=== PATIENT | female | born 1995 | race African-American/Black ===

== ENCOUNTER 2016-05-02 07:59 | Emergency (ER) | payer SELFPAY ==
[~2016-05-02] VITALS: Ht 162.6 cm; Wt 79.4 kg
--- NOTE | 2016-05-02 08:11 | PHYS DOC ---
Adult General Chief Complaint Chief Complaint: VAGINAL BLEEDING [facility] HPI Patient is a 20 year old female who presents with vaginal bleeding in . She is a 1 para 0 currently stating her last menstrual cycle around 03/08/2016. She states she used the bathroom today and noted some blood in the toilet. Patient denies any abdominal pain, denies any back pain. Denies any nausea vomiting. Denies any concerns for STDs. She has not had any OB care. Review of Systems Review of Systems Constitutional: Denies fever or chills [] Eyes: Denies change in visual acuity, redness, or eye pain [] HENT: Denies nasal congestion or sore throat [] Respiratory: Denies cough or shortness of breath [] Cardiovascular: No additional information not addressed in HPI [] GI: vaginal bleeding in : Denies dysuria or hematuria [] Musculoskeletal: Denies back pain or joint pain [] Integument: Denies rash or skin lesions [] Neurologic: Denies headache, focal weakness or sensory changes [] Endocrine: Denies polyuria or polydipsia [] Allergies Allergies Allergies Coded Allergies Type Severity Reaction Last Updated Verified No Known Drug Allergies 05/02/16 No Physical Exam Physical Exam Constitutional: Well developed, well nourished, no acute distress, non-toxic appearance. [] HENT: Normocephalic, atraumatic, bilateral external ears normal, oropharynx moist, no oral exudates, nose normal. [] Eyes: PERRLA, EOMI, conjunctiva normal, no discharge. [] Neck: Normal range of motion, no tenderness, supple, no stridor. [] Cardiovascular:Heart rate regular rhythm, no murmur [] Lungs & Thorax: Bilateral breath sounds clear to auscultation [] Abdomen: Bowel sounds normal, soft, no tenderness, no masses, no pulsatile masses. [] Pelvic exam External pelvic appears normal, cervix is closed, no CMT, no bleeding in the vaginal vault. Small amount of clear white discharge in the vaginal vault. No adnexal tenderness. Skin: Warm, dry, no erythema, no rash. [] Back: No tenderness, no CVA tenderness. [] Extremities: No tenderness, no cyanosis, no clubbing, ROM intact, no edema. [] Neurologic: Alert and oriented X 3, normal motor function, normal sensory function, no focal deficits noted. [] Psychologic: Affect normal, judgement normal, mood normal. [] Current Patient Data Vital Signs Vital Signs Date Time Temp Pulse Resp B/P Pulse Ox O2 Delivery O2 Flow Rate FiO2 05/02/16 09:15 73 16 135/74 99 Room Air 05/02/16 08:00 99.2 99.2 Lab Values Laboratory Tests Test 05/02/16 08:20 05/02/16 09:30 White Blood Count 6.4x10^3/uL (4.0-11.0) Red Blood Count 4.67x10^6/uL (3.50-5.40) Hemoglobin 13.5g/dL (12.0-15.5) Hematocrit 41.3% (36.0-47.0) Mean Corpuscular Volume 88fL (79-100) Mean Corpuscular Hemoglobin 29pg (25-35) Mean Corpuscular Hemoglobin Concent 33g/dL (31-37) Red Cell Distribution Width 13.8% (11.5-14.5) Platelet Count 209x10^3/uL (140-400) Neutrophils (%) (Auto) 52% (31-73) Lymphocytes (%) (Auto) 36% (24-48) Monocytes (%) (Auto) 10% (0-9) H Eosinophils (%) (Auto) 1% (0-3) Basophils (%) (Auto) 1% (0-3) Neutrophils # (Auto) 3.3x10^3uL (1.8-7.7) Lymphocytes # (Auto) 2.3x10^3/uL (1.0-4.8) Monocytes # (Auto) 0.6x10^3/uL (0.0-1.1) Eosinophils # (Auto) 0.1x10^3/uL (0.0-0.7) Basophils # (Auto) 0.0x10^3/uL (0.0-0.2) Maternal Serum HCG Beta Subunit 84009sWB/mL (0-6) H Urine Collection Type Void Urine Color Yellow Urine Clarity Clear Urine pH 7.0 Urine Specific [place] 1.020 Urine Protein Negativemg/dL (NEG-TRACE) Urine Glucose (UA) Negativemg/dL (NEG) Urine Ketones (Stick) Negativemg/dL (NEG) Urine Blood Negative (NEG) Urine Nitrite Positive (NEG) Urine Bilirubin Negative (NEG) Urine Urobilinogen Dipstick 1.0mg/dL (0.2 mg/dL) Urine Leukocyte Esterase Moderate (NEG) Urine RBC 1-2/HPF (0-2) Urine WBC >40/HPF (0-4) Urine Squamous Epithelial Cells Many/LPF Urine Bacteria Many/HPF (0-FEW) Urine Mucus Marked/LPF Urine Test Positive (NEG) Laboratory Tests 05/02/16 08:20 Microbiology 05/02/16 Wet Prep - Final, Complete Microbiology 05/02/16 Wet Prep - Final, Complete EKG EKG [] Radiology/Procedures Radiology/Procedures []PROCEDURE: OB <14 WKS W/TV Procedure: OB Sono Less Than 14Wks 0 Days Clinical information: Vaginal bleeding, patient is Date of Service: 05/02/16. Comparison: None available Technique: Multiple transabdominal and endovaginal longitudinal and transverse 2D real time ultrasound images through the pelvis were acquired. Findings: The uterus measures 8.2 x 6.2 x 5.7 cm. Single into uterine gestational sac containing a live pole is noted. CRL measures 0.96 cm corresponding to a maturity of 17 weeks 0 days. Mean sac diameter measures 2.46 cm corresponding to a maturity of 17 weeks 4 days. The composite maturity is 7 weeks 2 days with a EDC of 12/17/26. Maturity by LMP measures 7 weeks 6 days with a EDC of 12/13/16. Doppler interrogation reveals a cardiac activity at the rate of 141beats per minute. The uterus is otherwise unremarkable. Cervix measures4.3 cm. The ovaries are unremarkable. Right ovary measures 2.7 x 2.3 x 1.5 cm left ovary measures 2.7 x 2.6 x 2.2 cm.. Symmetric vascularity to both ovaries. There is a 1.5 cm follicular cyst in the left ovary No adnexal mass is seen. No free fluid is seen. Impression: 1. Single intrauterine gestational sac containing a pole of maturity 17 weeks and 2 days with a heart rate of 1 41 bpm DICTATED and SIGNED BY: JOSSY GONZALEZ MD DATE: 05/02/16 0929 CC: VAIBHAV AL APRN; NO PCP ~ Course & Med Decision Making Course & Med Decision Making Pertinent Labs and Imaging studies reviewed. (See chart for details) This is a 20 year old female patient presenting today for vaginal bleeding in that begun this morning. She had no vaginal bleeding on pelvic exam. Positive urine hCG, beta-hCG 90,102. A positive blood group. CBC with no acute findings. Wet prep positive for BV. Patient to be discharged and Flagyl. Urine positive for UTI. She'll be discharged with cephalexin. First trimester OB ultrasound positive for IUP with a heart rate of 141. Patient was provided an [employer] for follow-up in the next 1-3 days. Patient was instructed to observe pelvic rest. She was instructed to return to the ED at any point she starts having excessive vaginal bleeding which includes soaking more than 1 feminine pad an hour, abdominal pain, back pain. D/c in stable condition. Dragon Disclaimer Dragon Disclaimer This electronic medical record was generated, in whole or in part, using a voice recognition dictation system. Departure Departure Impression: Primary Impression: Threatened in early Additional Impressions: Urinary tract infection Bacterial vaginosis Disposition: 01 HOME, SELF-CARE Condition: STABLE Referrals: NATHAN LOPEZ Jr, MD Call him today and try and get a follow up appointment. Patient Instructions: ABCs of , Bacterial Vaginosis, - Urinary Tract Infection, Threatened Miscarriage, [id number] Additional Instructions: You were seen for vaginal bleeding in . Please rest your pelvic that includes no sex until seen by the OB doctor and no doing strenuous activities.You also have bacterial vaginosis and UTI. Please complete your antibiotics. Come back to the Ed if symptoms worsen especially if you start soaking more than 1 feminine pad an hour. Scripts Cephalexin 500 Mg Tablet1 Tab PO BID #14 TAB Prov:VAIBHAV AL APRN 05/02/16 Metronidazole (Flagyl)500 Mg Tablet1 Tab PO BID #14 TAB Prov:VAIBHAV AL APRN 05/02/16 Problem Qualifiers Additional Impressions: Urinary tract infection Urinary tract infection type: acute cystitis Hematuria presence: without hematuria Qualified Code: N30.00 - Acute cystitis without hematuria VAIBHAV AL APRN May 02, 2016 08:11
[2016-05-02 08:35] LABS: BASO % 1 % (0-3); EOS % 1 % (0-3); HEMATOCRIT 41.3 % (36.0-47.0); HEMOGLOBIN 13.5 g/dL (12.0-15.5); LYMPH # 2.3 x10^3/uL (1.0-4.8); LYMPH % 36 % (24-48); MEAN CORPUSCULAR HEMOGLOBIN 29 pg (25-35); MEAN CORPUSCULAR HGB CONC 33 g/dL (31-37); MEAN CORPUSCULAR VOLUME 88 fL (79-100); MONO % 10 % (0-9); NEUT % 52 % (31-73); PLATELET COUNT 209 x10^3/uL (140-400); RED BLOOD COUNT 4.67 x10^6/uL (3.50-5.40); RED CELL DISTRIBUTION WIDTH 13.8 % (11.5-14.5); WHITE BLOOD COUNT 6.4 x10^3/uL (4.0-11.0)
[2016-05-02] MEDS ORDERED: PNV91TAB3 PO (08:44)
--- NOTE | 2016-05-02 09:38 | RAD ---
Procedure: OB Sono Less Than 14Wks 0 Days Clinical information: Vaginal bleeding, patient is Date of Service: 05/02/16. Comparison: None available Technique: Multiple transabdominal and endovaginal longitudinal and transverse 2D real time ultrasound images through the pelvis were acquired. Findings: The uterus measures 8.2 x 6.2 x 5.7 cm. Single into uterine gestational sac containing a live pole is noted. CRL measures 0.96 cm corresponding to a maturity of 17 weeks 0 days. Mean sac diameter measures 2.46 cm corresponding to a maturity of 17 weeks 4 days. The composite maturity is 7 weeks 2 days with a EDC of 12/17/26. Maturity by LMP measures 7 weeks 6 days with a EDC of 12/13/16. Doppler interrogation reveals a cardiac activity at the rate of 141beats per minute. The uterus is otherwise unremarkable. Cervix measures4.3 cm. The ovaries are unremarkable. Right ovary measures 2.7 x 2.3 x 1.5 cm left ovary measures 2.7 x 2.6 x 2.2 cm.. Symmetric vascularity to both ovaries. There is a 1.5 cm follicular cyst in the left ovary No adnexal mass is seen. No free fluid is seen. Impression: 1. Single intrauterine gestational sac containing a pole of maturity 17 weeks and 2 days with a heart rate of 1 41 bpm
[2016-05-02 09:43] LABS: BILIRUBIN,URINE NEGATIVE (NEG); GLUCOSE,URINE NEGATIVE (NEG); NITRITE,URINE POSITIVE (NEG); PROTEIN,URINE NEGATIVE (NEG-TRACE)
[2016-05-02 09:44] LABS: NEG OBC UR NEG; POS OBC UR POS
[2016-05-02 10:06] LABS: WBC,URINE >40 /HPF (0-4)
[2016-05-02 10:07] LABS: BACTERIA,URINE MANY /HPF (0-FEW); SQUAMOUS EPITHELIAL CELL,UR MANY /LPF
[2016-05-02] MEDS ORDERED: CEPH500T PO (10:26)
[2016-05-02] MEDS ORDERED: METR500T PO (10:26)
[2016-05-02 10:52] VITALS: BP 131/66
--- NOTE | 2016-05-05 15:17 | VNOTE ---
CALL BACK NOTE CALL BACK Microbiology 05/02/16 Wet Prep - Final, Complete 05/02/16 Urine Culture - Final, Complete 05/02/16 Urine Culture Result 1 (DIDI) - Final, Complete 05/02/16 Urine Culture Result 2 (DIDI) - Final, Complete 05/02/16 Antimicrobic Susceptibility - Final, Complete Patient is positive for gonorrhea and was not treated. I talked to patient. She stated she is coming back to the ED tomorrow morning for treatment. She does not have a ride right now. VAIBHAV AL APRN May 05, 2016 15:17
== END 2016-05-02 10:53 | disposition home or self-care (01) ==
LOC: ER 07:59
DX: O20.0 Threatened abortion (principal); O23.42 Unspecified infection of urinary tract in pregnancy, second trimester; Z3A.17 17 weeks gestation of pregnancy; O23.592 Infection of other part of genital tract in pregnancy, second trimester; N76.0 Acute vaginitis; B96.89 Other specified bacterial agents as the cause of diseases classified elsewhere
CPT/HCPCS: 36415; 76801; 76817; 81001; 81025; 84702; 85027; 86850; 86900; 86901; 87086; 87491; 87591; 99285; Q0111